=== PATIENT | female | born 1970 | race American Indian/Alaskan Native ===

== ENCOUNTER 2021-09-29 10:24 | Emergency (ER) | payer MEDICAID ==
[2021-09-29] MEDS ORDERED: Ketorolac 30 MG/ML SDV IM ONE (11:33)
== END 2021-09-29 11:43 | disposition home or self-care (01) ==
LOC: JP.ED 10:24
DX: L03.311 Cellulitis of abdominal wall (principal); E11.9 Type 2 diabetes mellitus without complications; B35.4 Tinea corporis; Z72.0 Tobacco use; Z79.4 Long term (current) use of insulin; Z79.899 Other long term (current) drug therapy
CPT/HCPCS: 96372; 99283; J1885